=== PATIENT | female | born 1975 | race African-American/Black ===

== ENCOUNTER 2016-08-13 06:41 | Emergency (ER) | payer MEDICAID ==
[~2016-08-13] VITALS: Ht 170.2 cm; Wt 86.0 kg
[2016-08-13 06:43] VITALS: BP 177/80; PULSE 87; RESP 16; TEMP 97.9; O2SAT 100
--- NOTE | 2016-08-13 07:05 | PD ---
HPI Chief Complaint: Eye Problems/Injury Time Seen by Provider: 07:05 Travel History International Travel<30 days: No Contact w/Intl Traveler<30days: No Traveled to known affect area: No History of Present Illness HPI 41-year-old Afro-Filipino female presents emergency Department with question of eye infection to the left. Patient statesshe was fine at this point she will go over the left eye feeling swollen, red, crusting, and somewhat irritated. She denies any visual changes. She denies any other signs of infection such as headache, sore throat, ear pain, or fever. Patient works at [employer] and is unsure of any of her patient had conjunctivitis. She has no other complaints. Pain is minimal. She has no known drug allergies. PFSH Past Medical History Arthritis: No Asthma: Yes Autoimmune Disease: No Blood Disorders: No Anxiety: No Depression: No Heart Rhythm Problems: No Cancer: No Cardiac Catheterization: No Cardiovascular Problems: Yes (HTN) High Cholesterol: No Chemotherapy: No Chest Pain: Yes Congestive Heart Failure: No COPD: No Cerebrovascular Accident: No Diabetes: No Diminished Hearing: No Endocrine: No Gastrointestinal Disorders: No GERD: Yes Glaucoma: No Genitourinary: No Headaches: Yes Hepatitis: No Hiatal Hernia: No Heparin Induced Thrombocytopen: No Hypertension: Yes Immune Disorder: No Implanted Vascular Access Dvce: No Kidney Stones: No Musculoskeletal: No Neurologic: Yes Psychiatric: No Reproductive: No Respiratory: Yes (ASTHMA) Migraines: Yes Myocardial Infarction: No Radiation Therapy: No Renal Failure: No Seizures: No Sickle Cell Disease: No Sleep Apnea: No Thyroid Disease: No Ulcer: No Tetanus Vaccination: < 5 Years Influenza Vaccination: No ?: Not LMP: NOW : 3 Para: 3 Miscarriage: 0 : 0 Tubal Ligation: Yes Past Surgical History Surgical History: No Previous Surgery Abdominal Surgery: No AICD: No Appendectomy: No Arteriovenous Shunt: No Cardiac Surgery: No Section: Yes (X1) Cholecystectomy: No Coronary Artery Bypass Graft: No Ear Surgery: No Endocrine Surgery: No Eye Surgery: No Genitourinary Surgery: No Gynecologic Surgery: No Insulin Pump: No Joint Replacement: No Neurologic Surgery: No Oral Surgery: No Pacemaker: No Thoracic Surgery: No Other Surgery: No Social History Alcohol Use: Yes (occasionally) Tobacco Use: No Substance Use: No Allergies-Medications (Allergen,Severity, Reaction): Coded Allergies: No Known Allergies (Verified , 08/13/16) Reported Meds & Prescriptions Reported Meds & Active Scripts Active No Active Prescriptions or Reported Medications Review of Systems Except as stated in HPI: all other systems reviewed are Neg General / Constitutional: No: Fever Eyes: Positive: Drainage, Redness, Pain, Tearing, No: Diploplia, Blurred Vision, Photophobia, Foreign Body Sensation, Blind Spots, Visual changes, Blindness HENT: No: Headaches Cardiovascular: No: Chest Pain or Discomfort Respiratory: No: Shortness of Breath Gastrointestinal: No: Abdominal Pain Genitourinary: No: Dysuria Musculoskeletal: No: Pain Skin: No Rash Neurologic: No: Weakness Psychiatric: No: Depression Endocrine: No: Polydipsia Hematologic/Lymphatic: No: Easy Bruising Physical Exam Narrative GENERAL: Patient appears in no acute distress. SKIN: Warm and dry. Normal color. Normal turgor. No rash. HEAD: Atraumatic. Normocephalic. EYES: Pupils equal and round. No scleral icterus. Left eye has moderate conjunctival injection with purulent drainage noted and mild swelling of the eyelids. ENT: No nasal bleeding or discharge. Mucous membranes pink and moist. Pharynx is clear. Airway is patent. TMs are clear bilaterally. NECK: Trachea midline. Supple nontender. CARDIOVASCULAR: Regular rate and rhythm. RESPIRATORY: No accessory muscle use. Clear to auscultation. Breath sounds equal bilaterally. MUSCULOSKELETAL: Extremities without clubbing, cyanosis, or edema. No obvious deformities. NEUROLOGICAL: Awake and alert. No obvious cranial nerve deficits. Motor grossly within normal limits. Five out of 5 muscle strength in the arms and legs. Normal speech. PSYCHIATRIC: Appropriate mood and affect; insight and judgment normal. Data Data Last Documented VS Vital Signs Date Time Temp Pulse Resp B/P Pulse Ox O2 Delivery O2 Flow Rate FiO2 08/13/16 06:47 16 08/13/16 06:43 97.9 87 177/80 100 Room Air MDM Medical Decision Making Medical Screen Exam Complete: Yes Emergency Medical Condition: Yes Differential Diagnosis Left erythema. Left eye drainage. Acute conjunctivitis. Narrative Course Patient is medically stable at time of exam. Patient will be treated with Maxitrol ophthalmic drops every 3 hours while awake for the next 5 days. Patient is given a note for work. Patient will follow up if symptoms do not improve or worsen in the next several days. Diagnosis Primary Impression: Acute conjunctivitis of left eye Qualified Code: H10.32 - Acute conjunctivitis of left eye, unspecified acute conjunctivitis type Referrals: Primary Care Physician Patient Instructions: Conjunctivitis (ED), General Instructions Departure Forms: Work Release Enter return to work date: Aug 15, 2016 Additional Instructions: Patient will be treated with Maxitrol ophthalmic drops every 3 hours while awake for the next 5 days. Patient is given a note for work. Patient will follow up if symptoms do not improve or worsen in the next several days. Med/Other Pt SpecificInfo: Prescription(s) given Scripts Mlhdftsa-Qpaozyjog-Azrzzyusvynxd Opth Drops (Maxitrol Opth Drops)3.5-10,000-0.1 Mg-Units-% Susp1 Drop EACH EYE Q4H #1 BOTTLE Prov:Dee Mari DO 08/13/16 Disposition: 01 DISCHARGE HOME Condition: Stable Kuldeep Argueta Aug 13, 2016 07:05
[2016-08-13] MEDS ORDERED: MAXI5O EACH EYE (07:15)
== END 2016-08-13 07:41 | disposition home or self-care (01) ==
LOC: NEPK 06:41
DX: H10.32 Unspecified acute conjunctivitis, left eye (principal); I10 Essential (primary) hypertension; Z87.09 Personal history of other diseases of the respiratory system; Z86.79 Personal history of other diseases of the circulatory system; Z87.19 Personal history of other diseases of the digestive system; Z86.69 Personal history of other diseases of the nervous system and sense organs
CPT/HCPCS: 99283